=== PATIENT | female | born 1985 | race Hispanic/Latino ===

== ENCOUNTER 2017-10-13 07:30 | Inpatient (IN) | payer MEDICAID, OTHER ==
[2017-10-13 08:08] VITALS: BMI 25.0
[2017-10-13] MEDS ORDERED: Lidocaine 1% (PF) 30 ML VIAL ONE (08:22)
[2017-10-13] MEDS ORDERED: LR / Pitocin 40 units/1000 ml 1,000 ML ONE (08:22)
[2017-10-13] MEDS ORDERED: Ibuprofen 800 MG TAB PO PRN (08:32)
[2017-10-13] MEDS ORDERED: LR / Pitocin 40 units/1000 ml 1,000 ML IV PRN (08:32)
[2017-10-13] MEDS ORDERED: HYDROcodone/Acetaminophen 5/325 mg Tablet PO PRN ×2 (08:32)
[2017-10-13] MEDS ORDERED: Lidocaine 1% (PF) 30 ML VIAL SC PRN (08:32)
[2017-10-13] MEDS ORDERED: Promethazine HCl 25 MG/ML VIAL IM PRN (08:33)
[2017-10-13] MEDS ORDERED: Ondansetron HCl/PF 4 MG/2 ML Vial IVP PRN (08:33)
--- NOTE | 2017-10-13 08:40 | PDOC.LDHP ---
Labor and Delivery H&P HPI: 31 yo WF AB1 with LMP of 12/29/16 presents c/o UCs since last night. Due date: 10/05/17 Dating criteria: last menstrual period Current complications: other (no PNC) Past Medical History: PMH, PSH none Current medications: none Previous surgical history: none Allergies/Adverse Reactions: Allergies Allergy/AdvReac Type Severity Reaction Status Date / Time No Known Allergies Allergy Unverified 10/13/17 08:05 Social history: tobacco use - Physical Exam Vital signs reviewed and normal: yes General: breathing through contractions Abdomen: gravid Extremeties: trace edema FHT: category 1 - Vaginal Exam Effacement: 100% Station: 1+ - OB Labs Blood type: unknown RH: unknown Antibody Screen: unknown HIV: unknown RPR: unknown HEPSAg: unknown 1 hour GCT: unknown 3 hour GTT: unknown GBS: unknown - Assessment L&D Assessment: term patient in labor - Plan Plan: admit to L&D (Expect )
--- NOTE | 2017-10-13 08:45 | PDOC.OPDEL ---
OB Operative/Delivery Note Pre-Delivery Diagnosis: active labor, other (no PNC) Procedure/Post Delivery Dx: other () Anesthesia: none - Additional Findings/Plan Placenta delivered: spontaneous Repaired Obstetrical Laceration: none Estimated blood loss: 150 cc Compilations/Other Findings: over intact perineum. Viable male with Apgars 9/9. Meconium suctioned from nasopharynx. Post delivery plan: routine recovery
[2017-10-13 10:11] LABS: Hemoglobin 11.5 g/dL (12.0-16.0); Mean Corpuscular HGB CONC 35.6 g/dL (32.0-36.0); Mean Corpuscular Hemoglobin 34.2 pg (27.0-31.0); Mean Platelet Volume 7.6 fL (7.4-10.4); Platelet Count 270 thou/uL (130-400); Red Blood Cell (RBC) Count 3.36 mill/uL (4.20-5.40); White Blood Cell (WBC) Count 19.5 thou/uL (4.8-10.8)
[2017-10-13 10:34] LABS: Amphetamine Not Detected (NotDetected); Barbiturates Screen Not Detected (NotDetected); Benzodiazepine Screen Not Detected (NotDetected); Cocaine Metabolite Screen Not Detected (NotDetected); Medtox Control Line Valid? VALID (VALID); Medtox Reader # READER 4; Methadone Not Detected (NotDetected); Methamphetamine Not Detected (NotDetected); Opiate Screen Not Detected (NotDetected); Oxycodone Screen Not Detected (NotDetected); Phencyclidine (PCP) Not Detected (NotDetected); THC/Cannabinoid Screen Detected (NotDetected); Tricyclic Screen Not Detected (NotDetected)
[2017-10-13 10:50] LABS: Syphilis Antibody Nonreactive (Nonreactive); Syphilis Antibody Index 0.09 S/CO (<1.00 Non-Reactive)
[2017-10-13] MEDS: Lactated Ringer's 1,000 ML IV SCH ×2 (12:31→18:17)
[2017-10-13 13:41] LABS: Hep B Surf AB Reactive (NonReactive)
[2017-10-13 13:42] LABS: HBSAB Concentration 20.53 mIU/mL
--- NOTE | 2017-10-13 15:05 | PDOC.EVN ---
Event Note - Event Note Event Note: CTSP for +Hep B result. Denies h/o hepatitis, IV drug use in the past. Discussed in detail, understands Nursery will be evaluating, treating baby. All questions answered.
[2017-10-13 15:57] LABS: HIV (1/2) Antibody/Antigen Non-Reactive (NonReactive); HIV 1/2 INDEX 0.15 S/CO (<1.00)
[2017-10-14 05:30] LABS: #Basophils 0.1 thou/uL (0.0-0.2); #Eosinphils 0.1 thou/uL (0.0-0.7); #Lymphocytes 2.7 thou/uL (1.20-3.40); #Monocytes 0.7 thou/uL (0.11-0.59); #Neutrophils 10.5 thou/uL (1.40-6.50); %Basophils 0.5 % (0.0-1.0); %Eosinophils 0.9 % (0.0-10.0); %Lymphocytes 19.3 % (21.0-51.0); %Monocytes 4.9 % (0.0-10.0); %Neutrophils 74.3 % (42.0-75.0); Hemoglobin 10.4 g/dL (12.0-16.0); Mean Corpuscular HGB CONC 33.9 g/dL (32.0-36.0); Mean Corpuscular Hemoglobin 32.6 pg (27.0-31.0); Mean Corpuscular Volume 96.3 fl (81.0-99.0); Mean Platelet Volume 7.9 fL (7.4-10.4); Platelet Count 291 thou/uL (130-400); RBC Distribution Width 12.1 % (11.5-14.5); White Blood Cell (WBC) Count 14.1 thou/uL (4.8-10.8)
[2017-10-14 05:47] LABS: AST (SGOT) 11 U/L (5-34); Albumin 2.8 g/dL (3.5-5.0); Alkaline Phosphatase 212 U/L (40-150); Anion Gap 9 mmol/L (10-20); BUN (Urea Nitrogen) 8 mg/dL (7.0-18.7); Bilirubin, Total Less than 0.2 mg/dL (0.2-1.2); Calc. Creatinine Clearance 158 mL/min (70-130); Calcium 8.9 mg/dL (7.8-10.44); Carbon Dioxide 25 mmol/L (22-29); Chloride 108 mmol/L (98-107); Estimated GFR-MDRD Greater than 90; Globulin 2.7 g/dL (2.4-3.5); Glucose 84 mg/dL (70-105); Potassium 3.8 mmol/L (3.5-5.1); Protein, Total 5.5 g/dL (6.0-8.3); Sodium 138 mmol/L (136-145)
[2017-10-14] MEDS ORDERED: Ibuprofen 800 MG TAB PO PRN (06:15)
--- NOTE | 2017-10-14 06:21 | PDOC.PP ---
Post Progress Note Post Day #: PPD#1 Subjective: Resting comfortably, no c/o. PO intake tolerated: yes Ambulation: yes Vital Signs (12 hours) Temp Pulse Resp BP BP 10/14/17 00:00 97.7 F 71 18 112/63 10/13/17 19:30 97.6 F 80 20 139/71 Weight Weight 74.843 kg - Physical Examination General: NAD Respiratory: non-labored breathing Abdominal: no distention Psychiatric: normal affect Result Diagrams: 10/14/17 04:45 10/14/17 04:45 Additional Labs: Post Labs Blood Type O POSITIVE 10/13/17 09:55 - Assessment/Plan LFTs are normal. Routine PP care.
[2017-10-14 06:24] LABS: ALT (SGPT) 7 U/L (8-55)
[2017-10-14 09:24] VITALS: BP 122/58; TEMP 98.1
[2017-10-14] MEDS: Lactated Ringer's 1,000 ML IV SCH (10:21)
--- NOTE | 2017-10-14 15:09 | PDOC.EVN ---
Event Note - Event Note Event Note: 10/14/17: Just contacted by nurse. The patient has been AWOL for last 2 hours and cannot be reached. CPS was awaiting her return in [place], but the patient has left to "smoke". supervisor partial denture department contacted and aware. We will likely DC on the chart as we cannot locate. Baby in nursery, and will likely go home with family member. CPS aware and is following.
== END 2017-10-14 16:00 | disposition home or self-care (01) | DRG 775 ==
LOC: L&D/OP 07:30 → L&D 08:40 → 3SW 10:52
PROVIDERS: ADMIT Obstetrics & Gynecology; ATTEND Obstetrics & Gynecology
PROC: 10E0XZZ Delivery of Products of Conception, External Approach (ICD-10-PCS; principal; 2017-10-13)
DX: O77.0 Labor and delivery complicated by meconium in amniotic fluid (principal); Z37.0 Single live birth; Z3A.40 40 weeks gestation of pregnancy
CPT/HCPCS: 36415; 51701; 80053; 80306; 85025; 85027; 86706; 86762; 86780; 86850; 86900; 86901; 87389; 88307; 99285; J2001

== ENCOUNTER 2018-10-25 13:29 | Outpatient (CLI) | payer MEDICAID ==
--- NOTE | 2018-10-25 14:52 | ULT ---
EXAM: Obstetrical ultrasound greater than 14 weeks: HISTORY: Anatomy, no care normal evaluation COMPARISON: None. FINDINGS: Single viable intrauterine fetus is noted in breech presentation. heart rate equals 121 bpm. Placenta is anterior. Cervical length is 5.4 cm. Amniotic fluid is Within normal limits. anatomy: Visualized brain, 4 chamber heart, chest, three-vessel cord, cord insert, stomach, bladder, kid neys, spine, and extremity regions are unremarkable. biometry: BPD: 7.2 cm--29 weeks 1 day Head circumference: 26.1 cm--28 weeks 3 days Abdominal circumference: 24.2 cm--28 weeks 4 days Femur length:5.3 cm--28 weeks 2 days IMPRESSION: Gestational age by ultrasound: 28 weeks 5 days SUSSY by ultrasound: 01/12/2019 Estimated weight: 1225 g
== END 2018-10-25 13:30 | disposition home or self-care (01) ==
LOC: BICULT 13:29
PROVIDERS: ATTEND Nurse Practitioner
DX: Z34.93 Encounter for supervision of normal pregnancy, unspecified, third trimester (principal); Z3A.28 28 weeks gestation of pregnancy
CPT/HCPCS: 76805

== ENCOUNTER 2019-01-06 19:36 | Emergency (ER) | payer MEDICAID | END 2019-01-06 21:10 | disposition home or self-care (01) | LOC: ERS 19:36 | DX: O99.89 Other specified diseases and conditions complicating pregnancy, childbirth and the puerperium (principal); H60.92 Unspecified otitis externa, left ear; O99.333 Smoking (tobacco) complicating pregnancy, third trimester; F17.210 Nicotine dependence, cigarettes, uncomplicated; Z3A.39 39 weeks gestation of pregnancy | CPT/HCPCS: 99282 ==

== ENCOUNTER 2019-01-08 19:30 | Inpatient (IN) | payer MEDICAID, OTHER ==
[~2019-01-08 19:30] MED LIST: Bupivacaine/Epinephrine 0.25% 30 ML VIAL ONE
[2019-01-08] MEDS ORDERED: hydrALAZINE 20 MG/ML VIAL SLOW IVP PRN (23:29)
[2019-01-08] MEDS ORDERED: Promethazine HCl 25 MG/ML VIAL IM PRN (23:29)
[2019-01-08] MEDS ORDERED: NS / Oxytocin 40 units/1000ml 1,000 ML IV PRN (23:29)
[2019-01-08] MEDS ORDERED: Butorphanol Tartrate 1 MG/ML VIAL SLOW IVP PRN (23:29)
[2019-01-08] MEDS ORDERED: Lidocaine 1% (PF) 30 ML VIAL SC PRN (23:29)
[2019-01-08] MEDS ORDERED: HYDROcodone/Acetaminophen 5/325 mg Tablet PO PRN (23:29)
[2019-01-08] MEDS ORDERED: Methylergonovine 0.2 MG/ML VIAL IM PRN (23:29)
[2019-01-08] MEDS ORDERED: NS w/ Oxytocin 10 units 500 ML IV SCH ×2 (23:29)
[2019-01-08] MEDS ORDERED: Diphenoxylate HCl/Atropine Tablet PO PRN (23:29)
[2019-01-08] MEDS ORDERED: Ondansetron PF 4 MG/2 ML Vial IVP PRN (23:29)
[2019-01-08] MEDS ORDERED: Ibuprofen 800 MG TAB PO PRN (23:29)
[2019-01-08] MEDS ORDERED: Misoprostol 200 MCG TAB PR PRN (23:29)
[2019-01-08] MEDS ORDERED: Carboprost 250 MCG/ML AMP IM PRN (23:29)
[2019-01-08 23:40] VITALS: BMI 33.3
[2019-01-08] MEDS ORDERED: Penicillin G Potassium 5 MILL.UNITS in Sodium Chloride 0.9% 100 ML IVPB SCH (23:45)
[2019-01-09] MEDS: Lactated Ringer's 1,000 ML IV SCH ×4 (00:52→10:41)
[2019-01-09 01:12] LABS: Hemoglobin 10.9 g/dL (12.0-16.0); Mean Corpuscular HGB CONC 32.4 g/dL (32.0-36.0); Mean Corpuscular Volume 98.9 fL (78.0-98.0); Platelet Count 295 thou/uL (130-400); RBC Distribution Width 12.6 % (11.5-14.5); Red Blood Cell (RBC) Count 3.41 mill/uL (4.20-5.40); White Blood Cell (WBC) Count 13.3 thou/uL (4.8-10.8)
[2019-01-09 01:53] LABS: HBSAg Index 0.31 S/CO (0-0.99); Hep B Surf Ag Non-Reactive S/CO (NonReactive)
[2019-01-09] MEDS: Misoprostol 100 MCG TAB PO SCH ×2 (03:51→14:55)
[2019-01-09 03:55] LABS: Amphetamine Not Detected (NotDetected); Barbiturates Screen Not Detected (NotDetected); Benzodiazepine Screen Not Detected (NotDetected); Cocaine Metabolite Screen Not Detected (NotDetected); Medtox Control Line Valid? VALID (VALID); Medtox Reader # READER 1; Methadone Not Detected (NotDetected); Methamphetamine Not Detected (NotDetected); Opiate Screen Not Detected (NotDetected); Oxycodone Screen Not Detected (NotDetected); Phencyclidine (PCP) Not Detected (NotDetected); THC/Cannabinoid Screen Not Detected (NotDetected); Tricyclic Screen Not Detected (NotDetected)
[2019-01-09] MEDS ORDERED: Calcium Carbonate 500 MG ChewTAB PO PRN (04:55)
[2019-01-09 05:42] LABS: Syphilis Antibody Nonreactive (Nonreactive); Syphilis Antibody Index 0.06 S/CO (<1.00 Non-Reactive)
[2019-01-09] MEDS ORDERED: Acetaminophen 500 MG TAB PO PRN (06:57)
[2019-01-09] MEDS ORDERED: Fentanyl 4 mcg/Bup 0.1% Cadd 0 ML ONE (08:39)
[2019-01-09] MEDS ORDERED: Fentanyl 100 MCG/2 ML VIAL ONE (08:39)
[2019-01-09] MEDS ORDERED: Fentanyl 4 mcg/Bup 0.1% Cadd 100 ML ONE (08:54)
[2019-01-09] MEDS ORDERED: Promethazine HCl 25 MG/ML VIAL IM PRN ×2 (10:17→14:34)
[2019-01-09] MEDS ORDERED: ePHEDrine/0.9% NaCl/PF SYRINGE 50 mg/10 ml SLOW IVP PRN (10:17)
[2019-01-09] MEDS ORDERED: Naloxone HCl 0.4 mg/ml Vial IVP PRN ×2 (10:17)
[2019-01-09] MEDS ORDERED: diphenhydrAMINE 50 MG/ML VIAL IVP PRN (10:17)
[2019-01-09] MEDS ORDERED: Lactated Ringer's 500 ML IV PRN (10:17)
[2019-01-09] MEDS ORDERED: Acetaminophen 325 MG TAB PO PRN (10:17)
[2019-01-09] MEDS ORDERED: Ondansetron PF 4 MG/2 ML Vial IVP PRN ×2 (10:17→14:34)
[2019-01-09] MEDS: Penicillin G 2.5 MILL.units 2.5 MILL.UNITS in Premix Bag 1 BAG IVPB SCH ×4 (10:25→14:58)
[2019-01-09] MEDS ORDERED: Fentanyl 4 mcg/Bupivacaine 0.1% Cassette 100 ML EPIDURAL SCH (10:30)
[2019-01-09] MEDS ORDERED: Communication Order-Pharmacy FS SCH (10:30)
[2019-01-09] MEDS ORDERED: Lidocaine 1% (PF) 30 ML VIAL ONE (11:46)
[2019-01-09] MEDS ORDERED: NS / Oxytocin 40 units/1000ml 1,000 ML ONE (11:46)
[2019-01-09] MEDS ORDERED: Bisacodyl 10 MG SUPP PR PRN (14:34)
[2019-01-09] MEDS ORDERED: HYDROcodone/Acetaminophen 5/325 mg Tablet PO PRN ×2 (14:34)
[2019-01-09] MEDS ORDERED: Benzocaine-Menthol 82.5 ML CAN TOP PRN (14:34)
[2019-01-09] MEDS ORDERED: NS / Oxytocin 40 units/1000ml 1,000 ML IV SCH (14:34)
[2019-01-09] MEDS ORDERED: hydrALAZINE 20 MG/ML VIAL SLOW IVP PRN (14:34)
[2019-01-09] MEDS ORDERED: Milk Of Magnesia 30 ML UDCUP PO PRN (14:34)
[2019-01-09] MEDS ORDERED: Adacel (T-DAP) 0.5 ML SYRINGE IM ONE (14:34)
[2019-01-09] MEDS ORDERED: diphenhydrAMINE 25 MG CAP PO PRN (14:34)
[2019-01-09] MEDS: Ibuprofen 800 MG TAB PO SCH ×2 (15:09→21:58)
[2019-01-09] MEDS: Ferrous Sulfate 325 MG TAB PO SCH (17:47)
[2019-01-09] MEDS: Docusate Calcium (SURFAK) 240 MG CAP PO SCH (21:58)
[2019-01-10] MEDS: Ibuprofen 800 MG TAB PO SCH ×2 (05:13→14:20)
[2019-01-10 05:57] LABS: Hemoglobin 9.4 g/dL (12.0-16.0); Mean Corpuscular HGB CONC 32.9 g/dL (32.0-36.0); Mean Corpuscular Hemoglobin 32.4 pg (27.0-31.0); Mean Corpuscular Volume 98.3 fL (78.0-98.0); Mean Platelet Volume 7.7 fL (7.4-10.4); Platelet Count 258 thou/uL (130-400); RBC Distribution Width 12.4 % (11.5-14.5); Red Blood Cell (RBC) Count 2.89 mill/uL (4.20-5.40)
[2019-01-10 08:23] VITALS: BP 117/58; TEMP 97.6
[2019-01-10] MEDS ORDERED: Prenatal Vitamin 1 TAB PO SCH (09:00)
[2019-01-10] MEDS: Docusate Calcium (SURFAK) 240 MG CAP PO SCH (09:01)
[2019-01-10] MEDS: Ferrous Sulfate 325 MG TAB PO SCH ×2 (09:01→18:02)
== END 2019-01-10 19:09 | disposition home or self-care (01) | DRG 807 ==
LOC: L&D 23:05 → 3SW 01-09 14:27
PROVIDERS: ADMIT Family Medicine; ATTEND Family Medicine
PROC: 10E0XZZ Delivery of Products of Conception, External Approach (ICD-10-PCS; principal; 2019-01-09)
PROC: 3E0P7VZ Introduction of Hormone into Female Reproductive, Via Natural or Artificial Opening (ICD-10-PCS; 2019-01-09)
PROC: 10907ZC Drainage of Amniotic Fluid, Therapeutic from Products of Conception, Via Natural or Artificial Opening (ICD-10-PCS; 2019-01-09)
DX: O99.824 Streptococcus B carrier state complicating childbirth (principal); Z37.0 Single live birth; Z3A.40 40 weeks gestation of pregnancy
CPT/HCPCS: 36415; 51702; 80306; 85027; 86780; 86850; 86900; 86901; 87340; 90471; 90715; 90732; G0009; J2001; J2540; J2590; J3010; J3490